=== PATIENT | male | born 1990 | race Caucasian/White ===

== ENCOUNTER 2025-01-06 19:57 | Emergency (ER) | payer OTHER, SELFPAY ==
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
--- NOTE | ~2025-01-06 | XR_ITS ---
XR shoulder RT min 2V 01/06/2025 20:54 INDICATION: Right shoulder pain PROCEDURE: 3 views right shoulder COMPARISON: No prior studies for comparison. FINDINGS: Fracture, dislocation or subluxation is not identified. The soft tissues appear within normal limits. No foreign bodies are identified. IMPRESSION: 1: NO ACUTE BONE OR JOINT ABNORMALITY IDENTIFIED. Reviewed, dictated and finalized at location A.
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
--- OUTSIDE RECORDS SUMMARY | 2025-01-06 20:00 | XMS_ITS | Encounter Summary ---
Author Organization [facility] Address [address] [place] [address] Care Team Providers Care Property Utilization Officer Name Role Phone Edgar Rivers MD Primary Care Pr ovider Encounter Details Date Type Department Care Team (Latest Contact Info) Description 12/27/2024 Results Follow-Up [facility] Internal Medicine - [place] [address] [place] [address] [place] [address] [place] [address] COMPREHENSIVE METABOLIC PANEL, CBC WITH DIFFERENTIAL, TSH REFLEXIVE, Additional followed-up results: 2 Social History Tobacco Use Types Packs/Day Years Used Date Smoking Tobacco: Never Passive Smoke Exposure: Never Smokeless Tobacco: Never Alcohol Use Standard Drinks/Week Comments Yes 1 (1 standard drink = 0.6 oz pur e alcohol) socially Sex and Gender Information Value Date Recorded Sex Assigned at Not on file 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 Those include: - White Blood Cells - normal counts - Hemoglobin (Red Blood Cells) - normal counts - Platelets - normal counts - Kidney Function - normal - Electrolytes (including Sodium, Potassium and Calcium) - normal - Glucose and hemoglobin A1C is 5.3% - normal (no indication or concerns for prediabetes or diabetes) - Liver Function Test - normal - Thyroid Level - normal - Lipid Panel - normal Update to Phone Service: Please feel free to call the clinic ([phone]) with any questions or concerns. The clinic has a new phone service that is responsive and able to answer our current call room. Please call if you need a response quickly. INTRODUCING [facility] SPOKE MAKER - [facility] now has a 24-hour medical team of nurses and doctors to help you outside typical office hours. Just call my office number, , and you will be transferred directly to a member of our [facility] care team who can discuss any symptom or new concern that develops when our office is closed. Please take the time to add a close up self picture/portrait of just you to the [employer] system (if you have not already completed this process). This helps identify you during check-in processes throughout [facility]. Sincerely, Ninfa Rivers MD documented in this encounter Plan of Treatment Upcoming Encounters Date Type Department Care Team (Late st Contact Info) Description 12/22/2025 9:00 AM CDT Office Visit [facility] Internal Medicine - [place] [address] [place] [address] [place] [address] [place] [address] documented as of this encounter Visit Diagnoses Not on filedocumented in this encounter Care Teams Property Utilization Officer Relationship Specialty [place] [address] [place] [address] PCP - General Internal Medicine 11/28/18 documented as of this encounter
--- OUTSIDE RECORDS SUMMARY | 2025-01-06 20:00 | XMS_ITS | Encounter Summary ---
Author Organization [facility] Address [address] [place] [address] Care Team Providers Care Allergy Nurse Name Role Phone Edgar Rivers MD Primary Care Pr ovider Encounter Details Date Type Department Care Team (Late st Contact Info) Description 01/05/2025 External Device Data STL ABSTRACTION Provider, Abstract NO ADDRESS ON FILE Social History Tobacco Use Types Packs/Day Years Used Date Smoking Tobacco: Never Passive Smoke Exposure: Never Smokeless Tobacco: Never Alcohol Use Standard Drinks/Week Comments Yes 1 (1 standard drink = 0.6 oz pur e alcohol) socially Sex and Gender Information Value Date Recorded Sex Assigned at Not on file Legal Sex Male 5:46 AM RN L AND D Gender Identity Male 11/21/2024 9:10 PM CDT Sexual Orientation Straight 11/21/2024 9: 10 PM CDT Occupation Industry Job Start Date Job End Date Student Not on file Not 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 Not on file documented as of this encounter Plan of Treatment Upcoming Encounters Date Type Department Care Team (Late st Contact Info) Description 12/22/2025 9:00 AM CDT Office Visit [facility] Internal Medicine - [place] [address] [place] [address] [place] [address] [place] [address] documented as of this encounter Visit Diagnoses Not on filedocumented in this encounter Care Teams Allergy Nurse Relationship Specialty [place] [address] [place] [address] PCP - General Internal Medicine 11/28/18 documented as of this encounter
--- OUTSIDE RECORDS SUMMARY | 2025-01-06 20:00 | XMS_ITS | Clinical Summary ---
Author Organization [facility] Address [address] [place] [address] Care Team Providers Care Trial Court Judge Name Role Phone Edgar Rivers MD Primary Care Pr ovider Allergies No known active allergies Medications No known medications Active Problems Problem Noted Date Diagnosed Date Other hyperlipidemia 12/25/2021 Encounters Date Type Department Care Team Description 01/05/2025 External Device Data STL ABSTRACTION Provider, Abstract 12/27/2024 Results Follow-Up [facility] Internal Medicine - [place] [address] [place] [id number] Edgar Rivers MD COMPREHENSIVE METABOLIC PANEL, CBC WITH DIFFERENTIAL, TSH REFLEXIVE, Additional followed-up results: 2 12/22/2024 1:00 PM CDT Office Visit [facility] Internal Medicine - [address] [place] [phone] Edgar Rivers MD Annual visit for general adult medical examination with abnormal findings (Primary Dx); Other hyperlipidemia; Encounter for screening for nutritional disorder; Screening for diabetes mellitus from Last 3 Months Immunizations Immunization Administration Dates Next Due (ADACEL/BOOSTRIX)(10 YR UP) TDAP VACCINE, 0.5ML, IM 05/08/2011 (PFIZER)(12 YR UP) COVID-19 VACCINE - EMERGENCY USE AUTHORIZATION, MRNA, [id number](PF) 30 MCG/0.3 ML IM SUSP 11/16/2020,10/26/2020 (TDVAX)(7 YRS UP) TETANUS AN D DIPHTHERIA TOXOIDS, ADSORBED (2 LF OF TETANUS TOXOID AND 2 LF OF DIPHTHERIA TOXOID), 0.5ML (PF), IM 11/13/2002 Influenza A (H1N1) Vaccine IM 05/24/2009 Influenza Seasonal Unspecified Formulation IM Pneumococcal conjugate, unspecified formulation 05/08/2011,05/11/2005 Zoster Vaccine Live SQ 06/07/2008 Family History Medical History Relation Name Comments Diabetes Father Santosh Alas Borderline Diab etic Healthy Mother Jennifer Alas Healthy Sister Marsha Cochran Colon Cancer Neg Hx Prostate Cancer Neg Hx Relation Name Status Comments Father Santosh Alas Alive Maternal Grandfather Maternal Grandmother Mother Jennifer Alas Alive Paternal Grandfather Paternal Grandmother Sister Marsha Cochran Alive Social History Tobacco Use Types Packs/Day Years Used Date Smoking Tobacco: Never Passive Smoke Exposure: Never Smokeless Tobacco: Never Tobacco Cessation:Counseling Given: Not Answered Alcohol Use Standard Drinks/Week Comments Yes 1 (1 standard drink = 0.6 oz pur e alcohol) socially Sex and Gender Information Value Date Recorded Sex Assigned at Not on file 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 Gender Identity Male 11/21/2024 9:10 PM CDT Sexual Orientation Straight 11/21/2024 9: 10 PM CDT Occupation Industry Job Start Date Job End Date Student Not on file Not 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 Not on file Last Filed Vital Signs Vital Sign Reading Time Taken Comments Blood Pressure 118/70 12/22/2024 12:48 PM CDT Pulse 68 12/22/2024 12:48 PM CDT Temperature 36.7 C (98 F) 12/22/2024 12:48 PM CDT Respiratory Rate 18 05/07/2020 2:10 PM ACTIVE DIRECTORY ENGINEER Oxygen Saturation 98% 12/22/2024 12:48 PM CDT Inhaled Oxygen Concentration - - Weight 90.7 kg (200 lb) 12/22/2024 12:48 PM CDT Height 190.5 cm (6' 3) 12/22/2024 12:48 PM CDT Body Mass Index 25 12/22/2024 12:48 PM CDT Plan of Treatment Upcoming Encounters Date Type Department Care Team (Late st Contact Info) Description 12/22/2025 9:00 AM CDT Office Visit [facility] Internal Medicine - [place] [address] [place] [phone] [place] [address] [place] [address] Health Maintenance Due Date Last Done Comments HPV VACCINES (1 - Male 3-dos e series) 02/15/2003 HEPATITIS B VACCINES (1 of 3 - 19+ 3-dose series) 02/15/2007 COVID-19 Vaccine (3 - 2023-2 5 season) 2024 11/16/2020, 10/26/2020 INFLUENZA VACCINE (#1) 2024 02/21/2012 Pre-Diabetes and Diabetes Screening 12/23/2027 12/22/2024, 12/16/2021, 12/21/2020 DTAP/TDAP/TD VACCINES (4 - T d or Tdap) 11/17/2030 11/17/2020, 05/08/2011, 11/13/2002 Preventative Visit- Commercial Completed 0 12/22/2024, 12/18/2023, 12/17/2022, Additional history exists Procedures Procedure Name Priority Date/Time Associated Diagnosis Comments HEMOGLOBIN A1C Routine 12/22/2024 1:52 PM CDT Annual visit for general adult medical examination with abnormal findings Encounter for screening for nutritional disorder Screening for diabetes mellitus LIPID PANEL Routine 12/22/2024 1:52 PM CDT Annual visit for general adult medical examination with abnormal findings Other hyperlipidemia Encounter for screening for nutritional disorder TSH REFLEXIVE Routine 12/22/2024 1:52 PM CDT Annual visit for general adult medical examination with abnormal findings Other hyperlipidemia Encounter for screening for nutritional disorder CBC WITH DIFFERENTIAL Routine 12/22/2024 1:52 PM CDT Annual visit for general adult medical examination with abnormal findings Encounter for screening for nutritional disorder COMPREHENSIVE METABOLIC PANEL Routine 12/22/2024 1:52 PM CDT Annual visit for general adult medical examination with abnormal findings Encounter for screening for nutritional disorder from Last 3 Months Results * TSH REFLEXIVE (12/22/2024 1:52 PM CDT) Pathologist [facility] TSH 1.35 0.40 - 4.50 mIU/L [facility] Comment: Test Performed at: [place] [address] [place] [address] Paddy Martinez Blood 12/22/2024 1:52 PM CDT 12/22/2024 1:55 PM CDT Edgar Rivers MD CHEMISTRY ORDERA BLES Final Result [facility] [phone] [facility] [place] [address] [place] [address] * CBC WITH DIFFERENTIAL (12/22/2024 1:52 PM CDT) [facility] WBC 7.1 3.8 - 10.8 Thousand/u L [facility] RBC 5.35 4.20 - 5.80 Million/uL [facility] HEMOGLOBIN 16.1 13.2 - 17.1 g/dL [facility] HEMATOCRIT 49.8 38.5 - 50.0 % [facility] MCV 93.1 80.0 - 100.0 fL [facility] MCH 30.1 27.0 - 33.0 pg [facility] MCHC 32.3 32.0 - 36.0 g/dL [facility] Comment: For adults, a slight decrease in the calculated MCHC value (in the range of 30 to 32 g/dL) is most likely not clinically significant; however, it should be interpreted with caution in correlation with other red cell parameters and the patient's clinical condition. RDW 12.5 11.0 - 15.0 % [facility] PLATELETS 225 140 - 400 Thousand/u L [facility] MPV 11.0 7.5 - 12.5 fL [facility] NEUTROPHIL ABSOLUTE 3,706 1,500 - 7,800 cells/uL [facility] LYMPHOCYTE ABSOLUTE 2,719 850 - 3,900 cells/uL [facility] MONOCYTE ABSOLUTE 540 200 - 950 cells/uL [facility] EOSINOPHIL ABSOLUTE 114 15 - 500 cells/uL [facility] BASOPHILS ABSOLUTE 21 0 - 200 cells/uL [facility] NEUTROPHIL 52.2 % [facility] LYMPHOCYTES 38.3 % [facility] MONOCYTE 7.6 % [facility] EOSINOPHILS 1.6 % [facility] BASOPHILS 0.3 % [facility] Comment: Test Performed at: [facility] [place] [address] [address] [place] [id number] Paddy Martinez Blood 12/22/2024 1:52 PM CDT 12/22/2024 1:55 PM CDT [facility] Rivers MD HEMATOLOGY ORDER PAMELA Final Result [facility] [phone] [facility] [place] [address] [address] [place] [phone] * HEMOGLOBIN A1C (12/22/2024 1:52 PM CDT) HEMOGLOBIN A1C 5.3 <5.7 % of total Hgb [facility] Comment: For the purpose of screening for the presence of diabetes: <5.7% Consistent with the absence of diabetes 5.7-6.4% Consistent with increased risk for diabetes (prediabetes) > or =6.5% Consistent with diabetes This assay result is consistent with a decreased risk of diabetes. Currently, no consensus exists regarding use of hemoglobin A1c for diagnosis of diabetes in children. According to [place] Diabetes Association (ADA) guidelines, hemoglobin A1c <7.0% represents optimal control in non- diabetic patients. Different metrics may apply to specific patient populations. Standards of Medical Care in Diabetes(ADA). ESTIMATED AVERAGE GLUCOSE (MG/DL) 105 mg/dL [facility] ESTIMATED AVERAGE GLUCOSE (MMOL/L) 5.8 mmol/L [facility] Comment: Test Performed at: [facility] [address] [address] [place] [id number] [facility] Vo Blood 12/22/2024 1:52 PM CDT 12/22/2024 1:55 PM CDT Edgar Rivers MD CHEMISTRY ORDERA BLES Final Result [facility] [phone] [place] [address] [place] [address] * (ABNORMAL) LIPID PANEL (12/22/2024 1:52 PM CDT) CHOLESTEROL 242(H) <200 mg/dL [facility] HDL 73 > OR = 40 mg/dL [facility] TRIGLYCERIDE 161(H) <150 mg/dL [facility] LDL CALCULATED 139(H) mg/dL (calc) [facility] Comment: Reference range: <100 Desirable range <100 mg/dL for primary prevention; <70 mg/dL for patients with CHD or diabetic patients with > or = 2 CHD risk factors. LDL-C is now calculated using the Gene calculation, which is a validated novel method providing better accuracy than the Friedewald equation in the estimation of LDL-C. Jose Juan ESCOTO et al. NORAH. 2013;310(19): 6804-1567 (http://education.BRIKA/faq/HQC258) CHOL/HDL RATIO 3.3 <5.0 (calc) [facility] NON-HDL CHOLESTEROL 169(H) <130 mg/dL (calc) [facility] Comment: For patients with diabetes plus 1 major ASCVD risk factor, treating to a non-HDL-C goal of <100 mg/dL (LDL-C of <70 mg/dL) is considered a therapeutic option. Test Performed at: [facility] [address] [place] [address] [facility] Blood 12/22/2024 1:52 PM CDT 12/22/2024 1:55 PM CDT Edgar Rivers MD CHEMISTRY ORDERA BLES Final Result [facility] [phone] [facility] [place] [address] [address] [place] [phone] * (ABNORMAL) COMPREHENSIVE METABOLIC PANEL (12/22/2024 1:52 PM CDT) GLUCOSE 101(H) 65 - 99 mg/dL [facility] Comment: Fasting reference interval For someone without known diabetes, a glucose value between 100 and 125 mg/dL is consistent with prediabetes and should be confirmed with a follow-up test. BUN 17 7 - 25 mg/dL [facility] CREATININE 0.94 0.60 - 1.26 mg/dL [facility] GFR 108 > OR = 60 mL/min/1. 73m2 [facility] BUN/CREAT RATIO SEE NOTE: 6 - 22 (calc) [facility] Comment: Not Reported: BUN and Creatinine are within reference range. SODIUM 138 135 - 146 mmol/L [facility] POTASSIUM 3.9 3.5 - 5.3 mmol/L [facility] CHLORIDE 103 98 - 110 mmol/L [facility] CO2 25 20 - 32 mmol/L [facility] CALCIUM 9.5 8.6 - 10.3 mg/dL [facility] TOTAL PROTEIN 6.9 6.1 - 8.1 g/dL [facility] ALBUMIN 4.9 3.6 - 5.1 g/dL [facility] GLOBULIN 2.0 1.9 - 3.7 g/dL (calc) [facility] ALBUMIN/GLOBULIN RATIO 2.5 1.0 - 2.5 (calc) [facility] BILIRUBIN TOTAL 0.7 0.2 - 1.2 mg/dL [facility] ALKALINE PHOSPHATASE 64 36 - 130 U/L [facility] AST 22 10 - 40 U/L [facility] ALT 21 9 - 46 U/L [facility] Comment: Test Performed at: [facility] [address] [place] [id number] [facility] Vo Blood 12/22/2024 1:52 PM CDT 12/22/2024 1:55 PM CDT Edgar Rivers MD CHEMISTRY ORDERA BLES Final Result [facility] [phone] [facility] [address] [address] [place] [id number] from Last 3 Months Insurance [employer] OPEN ACCESS HMO [employer] OA HMO POS Care Teams Trial Court Judge Relationship Specialty [place] [address] [place] [address] PCP - General Internal Medicine 11/28/18
--- OUTSIDE RECORDS SUMMARY | 2025-01-06 20:00 | XMS_ITS | Patient Health Record ---
Author Organization [employer] Address [address] [facility] [address] [address] Care Team Providers Care Treating Machine Operator Name Role Phone z(Retired) Esteban KRISHNAN, Jake Primary Care Provide r Unavailable Reason For Referral No Information Plan Of Treatment No Information Insurance Providers Payer Name Payer Address Payer Phone Subscriber Number Group Number Insured Name Patient Relationship to Insured Coverage Start Date Coverage End Date Formerly [facility] Aso - Ppo E2 [address] [place] [phone] [id number] Ash Alas Self - patient is the insured
[2025-01-06 20:03] VITALS: BP 141/78; PULSE 97; RESP 20; TEMP 36.8; O2SAT 100
[2025-01-06 20:13] VITALS: BP 123/64; PULSE 91; RESP 20; TEMP 36.4; O2SAT 100
[2025-01-06 20:48] LABS: Hematocrit 45.0 % (42.0-52.0); Hemoglobin 15.2 g/dL (14.0-18.0); Immature Granulocyte Percent A 0.5 % (0-0.5); Lymphocytes Absolute Auto 3.99 K/mm3 (0.9-3.2); Mean Corpuscular HGB Conc 33.8 g/dl (32-36); Mean Corpuscular Hemoglobin 29.9 pg (26-34); Mean Corpuscular Volume 88.6 fl (80-100); Nucleated Red Blood Cells Absolute Auto 0.000 K/mm3 (0.0-0.012); Nucleated Red Blood Cells Perc 0.0 % (0.0-0.2); Platelet Count Result 211 k/mm3 (150-375); Red Blood Count 5.08 M/mm3 (4.6-6.20); White Blood Count 8.2 K/mm3 (4.5-10.0)
[2025-01-06 20:59] LABS: Alanine Aminotransferase 34 U/L (6-50); Albumin Level 4.6 g/dL (3.5-5.1); Alkaline Phosphatase 76 U/L (38-126); Anion Gap 8 mmol/L (4-12); Aspartate Amino Transferase 39 U/L (17-59); Bilirubin,Total 0.5 mg/dL (0.2-1.3); Blood Urea Nitrogen 21 mg/dL (9-20); Calcium 9.1 mg/dL (8.4-10.2); Carbon Dioxide 26 mmol/L (22-30); Chloride 103 mmol/L (98-107); Estimated CRCL calculation 102 ml/min; Estimated Glomerular Filt Rate > 60; Glucose 152 mg/dL (65-110); Lipase 63 U/L (23-300); Potassium 3.6 mmol/L (3.4-5.0); Sodium 137 mmol/L (137-145); Total Protein 7.0 g/dL (6.3-8.2)
[2025-01-06 21:00] LABS: INR 1.0; Prothrombin Time 13.2 Seconds (11.1-14.7)
[2025-01-06 21:01] LABS: Partial Thromboplastin Time 24.9 Seconds (22.3-36.8)
--- OUTSIDE RECORDS SUMMARY | 2025-01-06 21:33 | XMS_ITS | Encounter Summary ---
Author Organization [facility] Address 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
--- OUTSIDE RECORDS SUMMARY | 2025-01-06 21:33 | XMS_ITS | Encounter Summary ---
Author Organization [facility] Address 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 The clinic has a new phone service that is responsive and able to answer our current call room. Please call if you need a response quickly. INTRODUCING [facility] METAL MINER BLASTING - [facility] now has a 24-hour medical team of nurses and doctors to help you outside typical office hours. Just call my office number, , and you will be transferred directly to a member of our [facility] care team who can discuss any symptom or new concern that develops when our office is closed. Please take the time to add a close up self picture/portrait of just you to the [employer] system (if you have not already completed this process). This helps identify you during check-in processes throughout [facility]. Sincerely, Ninfa Rivers MD documented in this encounter Plan of Treatment Upcoming Encounters Date Type Department Care Team (Late st Contact Info) Description 12/22/2025 9:00 AM CDT Office Visit [facility] Internal Medicine - [place] [address] [place] [address] [place] [address] [place] [address] documented as of this encounter Visit Diagnoses Not on filedocumented in this encounter Care Teams Valve Repairer Relationship Specialty [place] [address] [place] [address] PCP - General Internal Medicine 11/28/18 documented as of this encounter
--- OUTSIDE RECORDS SUMMARY | 2025-01-06 21:33 | XMS_ITS | Clinical Summary ---
Author Organization [facility] ing Address [address] [facility] [address] [place] [address] Care Team Providers Care Telephonic Nurse Case Manager Name Role Phone Edgar Rivers MD Primary Care Pr ovider Allergies No known active allergies Medications No known medications Active Problems Problem Noted Date Diagnosed Date Other hyperlipidemia 12/25/2021 Encounters Date Type Department Care Team Description 01/05/2025 External Device Data STL ABSTRACTION Provider, Abstract 12/27/2024 Results Follow-Up [facility] Internal Medicine - [place] [address] [facility] [address] [place] [id number] Edgar Rivers MD COMPREHENSIVE METABOLIC PANEL, CBC WITH DIFFERENTIAL, TSH REFLEXIVE, Additional followed-up results: 2 12/22/2024 1:00 PM CDT Office Visit [facility] Internal Medicine - [address] [place] [phone] Edgar Rivers MD Annual visit for general adult medical examination with abnormal findings (Primary Dx); Other hyperlipidemia; Encounter for screening for nutritional disorder; Screening for diabetes mellitus from Last 3 Months Immunizations Immunization Administration Dates Next Due (ADACEL/BOOSTRIX)(10 YR UP) TDAP VACCINE, 0.5ML, IM 05/08/2011 (PFIZER)(12 YR UP) COVID-19 VACCINE - EMERGENCY USE AUTHORIZATION, MRNA, [id number](PF) 30 MCG/0.3 ML IM SUSP 11/16/2020,10/26/2020 (TDVAX)(7 [...] on file 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 Gender Identity Male 11/21/2024 9:10 PM CDT [...] CDT Respiratory Rate 18 05/07/2020 2:10 PM ORAL SURGERY PHYSICIAN Oxygen Saturation 98% 12/22/2024 12:48 PM CDT Inhaled Oxygen Concentration - - Weight 90.7 kg (200 lb) 12/22/2024 12:48 PM CDT Height 190.5 cm (6' 3) 12/22/2024 12:48 PM CDT Body Mass Index 25 12/22/2024 12:48 PM CDT Plan of Treatment Upcoming Encounters Date Type Department Care Team (Late st Contact Info) Description 12/22/2025 9:00 AM CDT Office Visit [facility] Internal Medicine - [place] [address] [facility] [address] [place] [phone] [place] [address] [facility] [address] [place] [address] Health Maintenance Due Date Last Done Comments [...] TSH REFLEXIVE (12/22/2024 1:52 PM CDT) Pathologist [facility] TSH 1.35 0.40 - 4.50 mIU/L [facility] Satya Comment: Test Performed at: [place] [address] [place] [address] Paddy Martinez Blood 12/22/2024 1:52 PM CDT 12/22/2024 1:55 PM CDT Edgar Rivers MD CHEMISTRY ORDERA BLES Final Result [facility] [phone] [facility] [place] [address] [place] [phone] * CBC WITH DIFFERENTIAL (12/22/2024 1:52 PM CDT) [facility] WBC 7.1 3.8 - 10.8 Thousand/u L [...] NEUTROPHIL ABSOLUTE 3,706 1,500 - 7,800 cells/uL [facility] [employer] LYMPHOCYTE ABSOLUTE 2,719 850 - 3,900 cells/uL [facility] MONOCYTE ABSOLUTE 540 200 - 950 cells/uL [facility] EOSINOPHIL ABSOLUTE 114 15 - 500 cells/uL [facility] BASOPHILS ABSOLUTE 21 0 - 200 cells/uL [facility] NEUTROPHIL 52.2 % [facility] walt Hernadez LYMPHOCYTES 38.3 % [facility] MONOCYTE 7.6 % [facility] EOSINOPHILS 1.6 % [facility] BASOPHILS 0.3 % [employer] walt Hernadez Comment: Test Performed at: [facility] [address] [address] [place] [phone] Paddy Martinez Blood 12/22/2024 1:52 PM CDT 12/22/2024 1:55 PM CDT [facility] Rivers MD HEMATOLOGY ORDER PAMELA Final Result [facility] [phone] [facility] [place] [address] [address] [place] [phone] * HEMOGLOBIN A1C (12/22/2024 1:52 PM CDT) HEMOGLOBIN A1C 5.3 <5.7 % of total Hgb [employer] Comment: For the purpose of screening for the presence of diabetes: <5.7% Consistent with the absence of diabetes 5.7-6.4% Consistent with increased risk for diabetes (prediabetes) > or =6.5% Consistent with diabetes This assay result is consistent with a decreased risk of diabetes. Currently, no consensus exists regarding use of hemoglobin A1c for diagnosis of diabetes in children. According to [place] Diabetes Association (ADA) guidelines, hemoglobin A1c <7.0% represents optimal control in non- diabetic patients. Different metrics may apply to specific patient populations. Standards of Medical Care in Diabetes(ADA). ESTIMATED AVERAGE GLUCOSE (MG/DL) 105 mg/dL [facility] [employer] ESTIMATED AVERAGE GLUCOSE (MMOL/L) 5.8 mmol/L [employer] godoy Satya Comment: Test Performed at: [facility] [place] [address] [address] [place] [id number] [facility] Vo Blood 12/22/2024 1:52 PM CDT 12/22/2024 1:55 PM CDT Edgar Rivers MD CHEMISTRY ORDERA BLES Final Result [facility] [phone] [place] [address] [place] [phone] * (ABNORMAL) LIPID PANEL (12/22/2024 1:52 PM CDT) CHOLESTEROL 242(H) <200 mg/dL [facility] [facility] Hernadez HDL 73 > OR = 40 mg/dL [facility] Hern[facility] TRIGLYCERIDE 161(H) <150 mg/dL [employer] walt Hernadez LDL CALCULATED 139(H) mg/dL (calc) [employer] Hern[employer] Comment: Reference range: <100 Desirable range <100 mg/dL for primary prevention; <70 mg/dL for patients with CHD or diabetic patients with > or = 2 CHD risk factors. LDL-C is now calculated using the Gene calculation, which is a validated novel method providing better accuracy than the Friedewald equation in the estimation of LDL-C. Jose Juan ESCOTO et al. NORAH. 2013;310(19): 5359-3756 (http://education.Piggybackr/faq/AJR932) CHOL/HDL RATIO 3.3 <5.0 (calc) [facility] [employer] Hernade[facility] NON-HDL CHOLESTEROL 169(H) <130 mg/dL (calc) [employer] Hern[employer] Comment: For patients with diabetes plus 1 major ASCVD risk factor, treating to a non-HDL-C goal of <100 mg/dL (LDL-C of <70 mg/dL) is considered a therapeutic option. Test Performed at: [facility] [address] [place] [address] [facility] Blood 12/22/2024 1:52 PM CDT 12/22/2024 1:55 PM CDT Edgar Rivers MD CHEMISTRY ORDERA BLES Final Result [facility] [phone] [facility] [place] [address] [address] [place] [id number] * (ABNORMAL) COMPREHENSIVE METABOLIC PANEL (12/22/2024 1:52 PM CDT) GLUCOSE 101(H) 65 - 99 mg/dL [employer] walt Hernadez Comment: Fasting reference interval For someone without known diabetes, a glucose value between 100 and 125 mg/dL is consistent with prediabetes and should be confirmed with a follow-up test. BUN 17 7 - 25 mg/dL [employer] [employer] walt Hernadez CREATININE 0.94 0.60 - 1.26 mg/dL [employer] walt Hernadez GFR 108 > OR = 60 mL/min/1. 73m2 [employer] [employer]S walt Satya BUN/CREAT RATIO SEE NOTE: 6 - 22 (calc) [employer] walt Hernadez Comment: Not Reported: BUN and Creatinine are within reference range. SODIUM 138 135 - 146 mmol/L [facility] POTASSIUM 3.9 3.5 - 5.3 mmol/L [employer] CHLORIDE 103 98 - 110 mmol/L [employer]S [employer] CO2 25 20 - 32 mmol/L [employer] CALCIUM 9.5 8.6 - 10.3 mg/dL [employer] [employer] [facility] TOTAL PROTEIN 6.9 6.1 - 8.1 g/dL [facility] ALBUMIN 4.9 3.6 - 5.1 g/dL [facility] GLOBULIN 2.0 1.9 - 3.7 g/dL (calc) [employer] w[facility] Hernade[employer] ALBUMIN/GLOBULIN RATIO 2.5 1.0 - 2.5 (calc) [employer] w[facility] Hern[employer] BILIRUBIN TOTAL 0.7 0.2 - 1.2 mg/dL [employer] walt Hernadez ALKALINE PHOSPHATASE 64 36 - 130 U/L [employer] walt Hernadez AST 22 10 - 40 U/L [employer] [employer]S walt Hernadez ALT 21 9 - 46 U/L [facility] [employer]S walt Hernadez Comment: Test Performed at: [facility] [address] [place] [phone] [facility] Vo Blood 12/22/2024 1:52 PM CDT 12/22/2024 1:55 PM CDT Edgar Rivers MD CHEMISTRY ORDERA BLES Final Result [facility] [phone] [facility] [address] [address] [place] [id number] from Last 3 Months Insurance [employer] OPEN ACCESS HMO [employer] OA HMO POS Care Teams Telephonic Nurse Case Manager Relationship Specialty [place] [address] [place] [address] PCP - General Internal Medicine 11/28/18
--- OUTSIDE RECORDS SUMMARY | 2025-01-06 21:33 | XMS_ITS | Encounter Summary ---
Author Organization [facility] Address 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 Gender Identity Male 11/21/2024 9:10 PM CDT Sexual Orientation Straight 11/21/2024 9: 10 PM CDT documented as of this encounter Plan of Treatment Upcoming Encounters Date Type Department Care Team (Late Contact Info) Description 12/22/2025 9:00 AM CDT Office Visit [facility] Internal Medicine - [place] [address] [facility] [place] [address] [facility] [place] [address] [place] [address] [facility] [place] [address] [facility] [place] [address] documented as of this encounter Procedures Procedure Name Priority Date/Time Associated Diagnosis Comments XR LUMBAR SPINE 4+ VW Routine 12/29/2008 12:42 PM CDT documented in this encounter Results * XR LUMBAR SPINE 4+ VW (12/29/2008 12:42 PM CDT) Anatomical Region Laterality Modality Spine Other 12/29/2008 12:4 2 PM CDT Narrative 12/30/2008 11:47 AM CDT [place] [id number] [place], [place] [address] Admit Date: 12/29/2008 ASH ALAS Sex: M Admit Prov: MELODY MANRIQUE Date: 1990 Primary Care Prov: MELODY MANRIQUE CMRN: [id number] Room: MARGARET SSN: [id number] IMAGING SERVICES Ordering Prov: N/A Accession Number: [id number] Interpretation CLINICAL INDICATION: 18-year-old man with low back pain. REPORT: AP, LATERAL, CONED-LATERAL, BOTH OBLIQUE VIEWS OF THE LUMBAR SPINE 12/29/2008 COMPARISONS: None. FINDINGS: Alignment of the lumbar spine is within normal limits. There is mild to moderate narrowing of the L5-S1 disc space. There is facet arthropathy at this level. No severe compression fracture is seen. Evaluation of the vertebral bodies is slightly limited due to overlying bowel gas. The pedicles are intact. IMPRESSION: Mild to moderate narrowing of the L5-S1 disc space. No acute fracture. . Dictated by: JOSE ALBERTO PARADA 12/29/2008 13:51 Electronically signed by: JOSE ALBERTO PARADA 12/30/2008 11:45 Transcribed: 12/30/2008 00:13 SJ Procedure Note Jose Alberto Parada - 12/30/2008 [place] [address], [place] [address] Admit Date: 12/29/2008 ASH ALAS Sex: M Admit Prov: MELODY MANRIQUE Date: 1990 Primary Care Prov: MELODY MANRIQUE CMRN: [id number] Room: MARGARET SSN: [id number] IMAGING SERVICES Ordering Prov: N/A Interpretation CLINICAL INDICATION: 18-year-old man with low back pain. REPORT: AP, LATERAL, CONED-LATERAL, BOTH OBLIQUE VIEWS OF THE LUMBARSPINE 12/29/2008 COMPARISONS: None. FINDINGS: Alignment of the lumbar spine is within normal limits.There is mild to moderate narrowing of the L5-S1 disc space. There is facet arthropathy at this level. No severe compression fracture is seen. Evaluation of the vertebral bodies is slightly limited due tooverlying bowel gas. The pedicles are intact. IMPRESSION: Mild to moderate narrowing of the L5-S1 disc space. No acutefracture. . Dictated by: JOSE ALBERTO PARADA 12/29/2008 13:51 Electronically signed by: JOSE ALBERTO PARADA 12/30/2008 11:45 Transcribed: 12/30/2008 00:13 SJ us Melody Manrique MD DIAGNOSTIC IMAGING ORDERABLES Final Result documented in this encounter Visit Diagnoses Diagnosis Lumbago documented in this encounter Care Teams Code Enforcement Supervisor Relationship Specialty [place] [address] [facility] [address] [place] [address] PCP - General Internal Medicine 11/28/18 documented as of this encounter
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
[2025-01-06] MEDS: diazePAM INJ (*CRX) 10 MG/2 ML SYRINGE 5 MG IV PUSH (22:03)
== END 2025-01-06 22:40 | disposition home or self-care (01) ==
PROVIDERS: Emergency Provider Physician Assistant
DX: S01.512A Laceration without foreign body of oral cavity, initial encounter (principal); S90.02XA Contusion of left ankle, initial encounter; S40.211A Abrasion of right shoulder, initial encounter; S60.811A Abrasion of right wrist, initial encounter; S80.212A Abrasion, left knee, initial encounter; S80.211A Abrasion, right knee, initial encounter; S11.91XA Laceration without foreign body of unspecified part of neck, initial encounter; V86.56XA Driver of dirt bike or motor/cross bike injured in nontraffic accident, initial encounter
CPT/HCPCS: 36415; 70450; 70486; 71045; 71260; 72125; 73030; 73110; 73610; 74177; 80053; 83690; 85025; 85610; 85730; 96374; 99284; A9270; J3360; Q9967